=== PATIENT | female | born 1950 | race Hispanic/Latino ===

== ENCOUNTER 2019-02-09 18:17 | Emergency (ER) | payer OTHER ==
[2019-02-09] MEDS ORDERED: LIDOCAINE 1% W/EPI 1:100,000 MDV 20 ML VIAL ONE (18:45)
[2019-02-09] MEDS ORDERED: SMZ./TMP. 800/160 MG TABLET ONE (18:49)
[2019-02-09] MEDS ORDERED: DOXYCYCLINE 100 MG CAP PO ONE (18:49)
--- NOTE | 2019-02-09 18:58 | ER ---
Nurse's Notes [facility] Name: Maame Pineda Age: 68 yrs Sex: Female : 1950 Arrival Date: 02/09/2019 Time: 18:19 Bed 24 Private MD: Diagnosis: Cutaneous abscess of abdominal wall;Type 1 diabetes mellitus;Sebaceous cyst Presentation: 02/09 18:24 Presenting complaint: Patient states: abscess x 1 month had no redness, Saturday is sv started getting red and swollen. Transition of care: patient was not received from another setting of care. Onset of symptoms was February 06, 2019. Risk Assessment: Do you want to hurt yourself or someone else? Patient reports no desire to harm self or others. Initial Sepsis Screen: Does the patient meet any 2 criteria? No. Patient's initial sepsis screen is negative. Does the patient have a suspected source of infection? Yes: Skin breakdown/wound. Care prior to arrival: None. 18:24 Method Of Arrival: Ambulatory sv 18:24 Acuity: LOLIS 3 sv Triage Assessment: 18:24 General: Appears in no apparent distress. comfortable, Behavior is calm, cooperative, sv appropriate for age. Neuro: Level of Consciousness is awake, alert, obeys commands, Gait is steady. Respiratory: Respiratory effort is even, unlabored. Derm: Reports increased redness and swelling to abd abscess. Historical: - Allergies: 18:25 No Known Allergies; sv - PMHx: 18:25 Cancer, Breast; Diabetes - IDDM; High Cholesterol; Hypertension; sv - PSHx: 18:25 Mastectomy, Right; sv - Immunization history:: Adult Immunizations up to date, Last tetanus immunization: up to date. - Family history:: not pertinent. - Social history:: Smoking status: unknown. - Ebola Screening: : No symptoms or risks identified at this time. Screenin:52 Abuse screen: Denies threats or abuse. Denies injuries from another. Nutritional rv screening: No deficits noted. Tuberculosis screening: No symptoms or risk factors identified. Fall Risk None identified. Assessment: 19:51 General: Appears in no apparent distress. comfortable, Behavior is calm, cooperative. rv Pain: Complains of pain in right foot. Neuro: Level of Consciousness is awake, alert, obeys commands, Oriented to person, place, time, situation. Cardiovascular: Patient's skin is warm and dry. Respiratory: Airway is patent. GI: No signs and/or symptoms were reported involving the gastrointestinal system. : No signs and/or symptoms were reported regarding the genitourinary system. EENT: No signs and/or symptoms were reported regarding the EENT system. Derm: Skin is intact. Musculoskeletal: Swelling present in right foot. Vital Signs: 18:25 BP 135 / 58; Pulse 71; Resp 16; Temp 97.8(TE); Pulse Ox 100% ; Weight 52.62 kg; Height sv 4 ft. 11 in. (149.86 cm); 19:56 BP 128 / 61; Pulse 66; Resp 16; Pulse Ox 100% on R/A; rv 18:25 Body Mass Index 23.43 (52.62 kg, 149.86 cm) sv ED Course: 18:19 Patient arrived in ED. rg4 18:25 Triage completed. sv 18:26 Arm band placed on. sv 18:33 Raf Echeverria RN is Primary Nurse. rv 18:43 Armando Paul MD is Attending Physician. monalisa 18:56 Umair Christiansen MD is Referral Physician. monalisa 19:30 Patient has correct armband on for positive identification. Bed in low position. Call rv light in reach. Side rails up X 1. 19:30 Pulse ox on. NIBP on. rv 19:53 Assist provider with I \T\ D: of an abscess on abdomen. Patient did not have IV access rv during this emergency room visit. Administered Medications: 18:52 Drug: Doxycycline 200 mg Route: PO; rv 19:55 Follow up: Response: No adverse reaction rv 18:52 Drug: Bactrim (160 mg-800 mg (DS) 1 tablet Route: PO; rv 19:55 Follow up: Response: No adverse reaction rv Point of Care Testing: Blood Glucose: 19:56 Blood Glucose: 221 mg/dL; rv Ranges: Outcome: 18:56 Discharge ordered by . monalisa 19:54 Discharged to home ambulatory. rv 19:54 Condition: improved 19:54 Discharge instructions given to patient, Instructed on discharge instructions, follow up and referral plans. medication usage, wound care, Demonstrated understanding of instructions, follow-up care, medications, wound care, Prescriptions given X 4. 19:55 Patient left the ED. rv Addendum: 02/14/2019 07:39 Addendum: Culture Results: Positive wound culture. No further action required. Bacteria i w sensitive to prescribed antibiotic. Signatures: Genesis Seaman, RN Armando Jett MD MD cha Williams, Irene RN Yris Erwin rg4 Raf Echeverria RN RN rv Corrections: (The following items were deleted from the chart) 02/09 19:54 19:54 Discharge instructions given to patient, Instructed on discharge instructions, rv follow up and referral plans. medication usage, wound care, Demonstrated understanding of instructions, follow-up care, medications, wound care, Prescriptions given X 3, rv
--- NOTE | 2019-02-09 18:58 | EDPHYS ---
Physician Documentation [facility] Name: Maame Pineda Age: 68 yrs Sex: Female : 1950 Arrival Date: 02/09/2019 Time: 18:19 Bed 24 Private MD: ED Physician Armando Paul HPI: 02/09 18:46 This 68 yrs old Female presents to ER via Ambulatory with complaints of monalisa Abscess. 18:46 The patient presents with an abscess of the abdomen. Description: erythematous, monalisa fluctuant, raised. Onset: The symptoms/episode began/occurred 3 day(s) ago. Associated signs and symptoms: The patient has no apparent associated signs or symptoms. Modifying factors: the symptoms are alleviated by remaining still, the symptoms are aggravated by pressure, sitting. Severity of symptoms: At their worst the symptoms were mild, in the emergency department the symptoms are unchanged. The patient has not experienced similar symptoms in the past. Historical: - Allergies: 18:25 No Known Allergies; sv - PMHx: 18:25 Cancer, Breast; Diabetes - IDDM; High Cholesterol; Hypertension; sv - PSHx: 18:25 Mastectomy, Right; sv - Immunization history:: Adult Immunizations up to date, Last tetanus immunization: up to date. - Family history:: not pertinent. - Social history:: Smoking status: unknown. - Ebola Screening: : No symptoms or risks identified at this time. ROS: 18:46 Constitutional: Negative for fever, chills, and weight loss, Eyes: Negative for injury, monalisa pain, redness, and discharge, ENT: Negative for injury, pain, and discharge, Neck: Negative for injury, pain, and swelling, Cardiovascular: Negative for chest pain, palpitations, and edema, Respiratory: Negative for shortness of breath, cough, wheezing, and pleuritic chest pain, Abdomen/GI: Negative for abdominal pain, nausea, vomiting, diarrhea, and constipation, Back: Negative for injury and pain, : Negative for injury, bleeding, discharge, and swelling, MS/Extremity: Negative for injury and deformity, Neuro: Negative for headache, weakness, numbness, tingling, and seizure, Psych: Negative for depression, anxiety, suicide ideation, homicidal ideation, and hallucinations, Allergy/Immunology: Negative for hives, rash, and allergies, Endocrine: Negative for neck swelling, polydipsia, polyuria, polyphagia, and marked weight changes, Hematologic/Lymphatic: Negative for swollen nodes, abnormal bleeding, and unusual bruising. 18:46 Skin: Positive for erythema, swelling, of the abdomen. Exam: 18:46 Constitutional: This is a well developed, well nourished patient who is awake, alert, monalisa and in no acute distress. Head/Face: Normocephalic, atraumatic. Eyes: Pupils equal round and reactive to light, extra-ocular motions intact. Lids and lashes normal. Conjunctiva and sclera are non-icteric and not injected. Cornea within normal limits. Periorbital areas with no swelling, redness, or edema. ENT: Nares patent. No nasal discharge, no septal abnormalities noted. Tympanic membranes are normal and external auditory canals are clear. Oropharynx with no redness, swelling, or masses, exudates, or evidence of obstruction, uvula midline. Mucous membranes moist. Neck: Trachea midline, no thyromegaly or masses palpated, and no cervical lymphadenopathy. Supple, full range of motion without nuchal rigidity, or vertebral point tenderness. No Meningismus. Chest/axilla: Normal chest wall appearance and motion. Nontender with no deformity. No lesions are appreciated. Cardiovascular: Regular rate and rhythm with a normal S1 and S2. No gallops, murmurs, or rubs. Normal PMI, no JVD. No pulse deficits. Respiratory: Lungs have equal breath sounds bilaterally, clear to auscultation and percussion. No rales, rhonchi or wheezes noted. No increased work of breathing, no retractions or nasal flaring. Abdomen/GI: Soft, non-tender, with normal bowel sounds. No distension or tympany. No guarding or rebound. No evidence of tenderness throughout. Back: No spinal tenderness. No costovertebral tenderness. Full range of motion. MS/ Extremity: Pulses equal, no cyanosis. Neurovascular intact. Full, normal range of motion. Neuro: Awake and alert, GCS 15, oriented to person, place, time, and situation. Cranial nerves II-XII grossly intact. Motor strength 5/5 in all extremities. Sensory grossly intact. Cerebellar exam normal. Normal gait. Psych: Awake, alert, with orientation to person, place and time. Behavior, mood, and affect are within normal limits. 18:46 Skin: abscess, that is small, approximately 3 cm(s), cellulitis, that is minimal, that is mild, induration, that is mild is noted. Vital Signs: 18:25 BP 135 / 58; Pulse 71; Resp 16; Temp 97.8(TE); Pulse Ox 100% ; Weight 52.62 kg; Height sv 4 ft. 11 in. (149.86 cm); 19:56 BP 128 / 61; Pulse 66; Resp 16; Pulse Ox 100% on R/A; rv 18:25 Body Mass Index 23.43 (52.62 kg, 149.86 cm) sv Procedures: 18:46 I \T\ D: Incision and drainage was performed for an abscess of the right Prepped with [facility] Betadine, Anesthetized with 5 ml's 1% Lidocaine w/ Epi. Incised with #11 blade. Drained small amount Packed with iodoform gauze, Dressing: non-Adherent dressing, the patient tolerated the procedure well. MDM: 18:43 Patient medically screened. [facility] 18:46 Data reviewed: vital signs, nurses notes. [facility] 02/09 18:46 Order name: Wound Culture [facility] 02/09 18:46 Order name: Dressing - Wound; Complete Time: 19:55 [facility] 02/09 18:46 Order name: Gloves, Sterile; Complete Time: 19:55 [facility] 02/09 18:46 Order name: Setup Suture Tray; Complete Time: 19:55 [facility] 02/09 18:51 Order name: Blood Glucose Level; Complete Time: 19:55 [facility] Administered Medications: 18:52 Drug: Doxycycline 200 mg Route: PO; rv 19:55 Follow up: Response: No adverse reaction rv 18:52 Drug: Bactrim (160 mg-800 mg (DS) 1 tablet Route: PO; rv 19:55 Follow up: Response: No adverse reaction rv Point of Care Testing: Blood Glucose: 19:56 Blood Glucose: 221 mg/dL; rv Ranges: Critical Glucose Levels:Adult <50 mg/dl or >400 mg/dl <40 mg/dl or >180 mg/dl Disposition: 02/09/19 18:56 Discharged to Home. Impression: Cutaneous abscess of abdominal wall, Type 1 diabetes mellitus, Sebaceous cyst. - Condition is Stable. - Discharge Instructions: Skin Abscess, Type 1 Diabetes Mellitus, Diagnosis, Adult, Incision and Drainage, Epidermal Cyst, [id number], Epidermal Cyst, Skin Abscess, [id number], Incision and Drainage, Care After, Type 1 Diabetes Mellitus, Self Care, Adult, Type 1 Diabetes Mellitus, Diagnosis, Adult, [id number]. - Prescriptions for Bactroban 2 % Topical Ointment - Apply to affected area 1 application by TOPICAL route every 12 hours; 30 gram. Tylenol- Codeine #3 300-30 mg Oral Tablet - take 2 tablets by ORAL route every 6 hours As needed; 20 tablet. Doxycycline Hyclate 100 mg Oral Tablet - take 1 tablet by ORAL route every 12 hours; 20 tablet. Bactrim DS 800- 160 mg Oral Tablet - take 1 tablet by ORAL route every 12 hours for 10 days; 20 tablet. - Medication Reconciliation Form, Thank You Letter, Antibiotic Education, Prescription Opioid Use form. - Follow up: Private Physician; When: 2 - 3 days; Reason: Recheck today's complaints, Continuance of care, Re-evaluation by your physician. Follow up: Umair Christiansen; When: 2 - 3 days; Reason: Recheck today's complaints, Re-evaluation by your physician. - Problem is new. - Symptoms have improved. Signatures: Dispatcher [employer] Genesis Hurt RN RN Armando Longoria MD MD cha Vicente, Ronaldo RN RN rv Corrections: (The following items were deleted from the chart) 19:42 18:56 02/09/2019 18:56 Discharged to Home. Impression: Cutaneous abscess of abdominal monalisa wall; Type 1 diabetes mellitus. Condition is Stable. Discharge Instructions: Skin Abscess, Incision and Drainage, Skin Abscess, [id number], Incision and Drainage, Care After, Type 1 Diabetes Mellitus, Diagnosis, Adult, Type 1 Diabetes Mellitus, Self Care, Adult, Type 1 Diabetes Mellitus, Diagnosis, Adult, [id number]. Prescriptions for Bactroban 2 % Topical Ointment - Apply to affected area 1 application by TOPICAL route every 12 hours; 30 gram, Tylenol-Codeine #3 300-30 mg Oral Tablet - take 2 tablets by ORAL route every 6 hours As needed; 20 tablet, Doxycycline Hyclate 100 mg Oral Tablet - take 1 tablet by ORAL route every 12 hours; 20 tablet, Bactrim DS 800-160 mg Oral Tablet - take 1 tablet by ORAL route every 12 hours for 10 days; 20 tablet. and Forms are Medication Reconciliation Form, Thank You Letter, Antibiotic Education, Prescription Opioid Use. Follow up: Private Physician; When: 2 - 3 days; Reason: Recheck today's complaints, Continuance of care, Re-evaluation by your physician. Follow up: Umair Christiansen; When: 2 - 3 days; Reason: Recheck today's complaints, Re-evaluation by your physician. Problem is new. Symptoms have improved. [facility] 19:55 19:42 02/09/2019 18:56 Discharged to Home. Impression: Cutaneous abscess of abdominal rv wall; Type 1 diabetes mellitus; Sebaceous cyst. Condition is Stable. Discharge Instructions: Skin Abscess, Incision and Drainage, Skin Abscess, [id number], Incision and Drainage, Care After, Type 1 Diabetes Mellitus, Diagnosis, Adult, Type 1 Diabetes Mellitus, Self Care, Adult, Type 1 Diabetes Mellitus, Diagnosis, Adult, [id number]. Prescriptions for Bactroban 2 % Topical Ointment - Apply to affected area 1 application by TOPICAL route every 12 hours; 30 gram, Tylenol-Codeine #3 300-30 mg Oral Tablet - take 2 tablets by ORAL route every 6 hours As needed; 20 tablet, Doxycycline Hyclate 100 mg Oral Tablet - take 1 tablet by ORAL route every 12 hours; 20 tablet, Bactrim DS 800-160 mg Oral Tablet - take 1 tablet by ORAL route every 12 hours for 10 days; 20 tablet. and Forms are Medication Reconciliation Form, Thank You Letter, Antibiotic Education, Prescription Opioid Use. Follow up: Private Physician; When: 2 - 3 days; Reason: Recheck today's complaints, Continuance of care, Re-evaluation by your physician. Follow up: Umair Christiansen; When: 2 - 3 days; Reason: Recheck today's complaints, Re-evaluation by your physician. Problem is new. Symptoms have improved. monalisa
[2019-02-09 20:13] VITALS: BP 135/58; TEMP 97.8; O2SAT 100
== END 2019-02-09 19:55 | disposition home or self-care (01) ==
LOC: ER 18:17
PROC: 0J980ZZ Drainage of Abdomen Subcutaneous Tissue and Fascia, Open Approach (ICD-10-PCS; principal; 2019-02-09)
DX: L02.211 Cutaneous abscess of abdominal wall (principal); L72.3 Sebaceous cyst; E10.9 Type 1 diabetes mellitus without complications; I10 Essential (primary) hypertension; Z85.3 Personal history of malignant neoplasm of breast; Z90.11 Acquired absence of right breast and nipple
CPT/HCPCS: 36415; 82962; 87070; 87077; 87186; 87205; 99284